=== PATIENT | male | born 1995 | race Asian ===

== ENCOUNTER 2018-02-25 01:18 | Emergency (ER) | payer SELFPAY ==
[2018-02-25] MEDS ORDERED: Ondansetron INJ* 2 MG/ML VIAL IV ONE (01:33)
[2018-02-25] MEDS ORDERED: NS 0.9% 1000 ML* 1,000 ML BOLUS SCH (01:45)
[2018-02-25 01:59] LABS: ABS Basophils 0 10^3/ul (0-0.2); ABS Eosinophils 0.1 10^3/ul (0-0.6); ABS Lymphocytes 2.5 10^3/ul (1.0-4.8); ABS Monocytes 0.3 10^3/ul (0-0.8); ABS Neutrophils 6.2 10^3/ul (1.5-7.7); ABS Nucleated RBC 0 10^3/ul; Hematocrit 43 % (42-52); Hemoglobin 14.4 g/dl (14.0-18.0); Lymphocyte % 27.5 % (25-47); Mean Corpuscular HGB Conc 34 g/dl (31-36); Mean Corpuscular Hemoglobin 29 pg (27-31); Mean Corpuscular Volume 84 fL (80-94); Mean Platelet Volume 9.1 um3 (7.4-10.4); Nucleated Red Blood Cells % 0.1; Platelet Count 167 10^3/ul (150-450); Red Blood Count 5.04 10^6/ul (4.0-5.4); Red Cell Distribution Width 14 % (10.5-15); White Blood Count 9.1 10^3/ul (3.5-10.8)
[2018-02-25 02:10] LABS: EGFR Non-African American 96.4 (>60)
[2018-02-25 07:12] LABS: Urine Appearance Cloudy; Urine Blood Negative (Negative); Urine Color Yellow; Urine Ketones 1+ (Negative); Urine Protein Negative (Negative); Urine Specific Gravity 1.019 (1.010-1.030); Urine Urobilinogen Negative (Negative)
[2018-02-25 07:13] VITALS: BP 111/55
--- NOTE | 2018-02-25 08:19 | ED ---
Nakul Brooke Tiffany, scribed for Maru Marks MD on 02/25/18 at 0201 . Substance Abuse/Use - HPI Summary HPI Summary: The patient is a 22 year old male BIBA with EtOH intoxication since 01:00 today. Symptoms aggravated by nothing. Symptoms alleviated by nothing. Patient is hiccuping upon evaluation. LEVEL 5 CAVEAT: HPI is limited because patient is unresponsive, eyes are closed , opens eyes to voice. - History Of Current Complaint Chief Complaint: EDSubstanceAbuse Stated Complaint: ETOH Time Seen by Provider: 02/25/18 01:21 Hx Obtained From: EMS Hx From Patient Unobtainable Due To: Other - Patient is unresponsive due to ETOH intoxication Onset/Duration of Drug/ETOH Abuse: Hours Timing Of Abuse: Binge Use Severity Currently: Moderate Character: Lethargic Aggravating Factor(s): Nothing Alleviating Factor(s): Nothing Associated Signs And Symptoms: Other: - hiccups Related Hx: Drug/Alcohol Last Used @ - 0100 - Allergies/Home Medications Allergies/Adverse Reactions: Allergies Allergy/AdvReac Type Severity Reaction Status Date / Time No Known Allergies Allergy Verified 02/25/18 01:33 Home Medications: Home Medications Unobtainable [Unobtainable] 02/25/18 [History Confirmed 02/25/18] PMH/Surg Hx/FS Hx/Imm Hx Previously Healthy: Yes Endocrine/Hematology History: Denies: Hx Diabetes Respiratory History: Denies: Hx Asthma - Surgical History Surgery Procedure, Year, and Place: NONE Infectious Disease History: No Infectious Disease History: Denies: Traveled Outside the [place] in Last 30 Days - Family History Known Family History: Positive: Other - No FHx-both parents and both sets of grandparents are alive and well. - Social History Occupation: Student Lives: Dormitory/Roommates Alcohol Use: Weekly Hx Substance Use: No Substance Use Type: Reports: None Hx Tobacco Use: No Smoking Status (MU): Never Smoked Tobacco Review of Systems - ROS Summary Review of Systems Summary: LEVEL 5 CAVEAT: ROS is limited because pt is intoxicated. Positive: Other - ETOH intoxication Cardiovascular: Negative Respiratory: Negative Positive: Other - hiccups Positive: Other - drowsy but rousable All Other Systems Reviewed And Are Negative: No Physical Exam - Summary Physical Exam Summary: Appearance: well-appearing, no pain distress, Well-nourished. Patient is hiccuping, opens eyes to voice, nods head to answer questions, has FROM of all extremities Skin: Warm, color reflects adequate perfusion Head: Normal Head/Face inspection, no signs of trauma Eyes: Conjunctiva clear, PERRL EOMI ENT: Normal inspection Neck: Supple, no nodes, no JVD. Respiratory: Lungs clear, Normal breath sounds, no respiratory distress Cardio: RRR, No murmur, pulses normal, brisk capillary refill Abdomen: soft, nontender, no masses Bowel sounds: present Musculoskeletal: Strength Intact/ ROM intact. No calf tenderness. No edema. Psychological: Normal Neuro: Drowsy but rousable, facial symmetry, muscle tone normal, moves all extremities, no focal deficit Triage Information Reviewed: Yes Vital Signs On Initial Exam: Initial Vitals Resp 18 02/25/18 01:26 Vital Signs Reviewed: Yes Diagnostics - Vital Signs Vital Signs Temp Pulse Resp BP Pulse Ox 02/25/18 01:43 72 15 100/60 98 02/25/18 01:29 97.6 F 70 20 90/72 100 02/25/18 01:28 17 90/72 02/25/18 01:26 18 - Laboratory Lab Results: Lab Results 02/25/18 02/25/18 02/25/18 Range/Units 01:38 01:38 06:45 WBC 9.1 (3.5-10.8) 10^3/ul RBC 5.04 (4.0-5.4) 10^6/ul Hgb 14.4 (14.0-18.0) g/dl Hct 43 (42-52) % MCV 84 (80-94) fL MCH 29 (27-31) pg MCHC 34 (31-36) g/dl RDW 14 (10.5-15) % Plt Count 167 (150-450) 10^3/ul MPV 9.1 (7.4-10.4) um3 Neut % (Auto) 67.9 (38-83) % Lymph % (Auto) 27.5 (25-47) % [place] % (Auto) 3.1 (0-7) % Eos % (Auto) 1.0 (0-6) % Baso % (Auto) 0.5 (0-2) % Absolute Neuts (auto) 6.2 (1.5-7.7) 10^3/ul Absolute Lymphs (auto) 2.5 (1.0-4.8) 10^3/ul Absolute Monos (auto) 0.3 (0-0.8) 10^3/ul Absolute Eos (auto) 0.1 (0-0.6) 10^3/ul Absolute Basos (auto) 0 (0-0.2) 10^3/ul Absolute Nucleated RBC 0 10^3/ul Nucleated RBC % 0.1 Sodium 138 L (139-145) mmol/L Potassium 3.6 (3.5-5.0) mmol/L Chloride 104 (101-111) mmol/L Carbon Dioxide 23 (22-32) mmol/L Anion Gap 11 (2-11) mmol/L BUN 18 (6-24) mg/dL Creatinine 0.99 (0.67-1.17) mg/dL Est GFR ( Amer) 123.9 (>60) Est GFR (Non-Af Amer) 96.4 (>60) BUN/Creatinine Ratio 18.2 (8-20) Glucose 128 H (70-100) mg/dL Calcium 8.8 (8.6-10.3) mg/dL Magnesium 2.4 (1.9-2.7) mg/dL Total Bilirubin 0.60 (0.2-1.0) mg/dL AST 50 H (13-39) U/L ALT 44 (7-52) U/L Alkaline Phosphatase 47 (34-104) U/L Total Protein 6.7 (6.4-8.9) g/dL Albumin 4.3 (3.2-5.2) g/dL Globulin 2.4 (2-4) g/dL Albumin/Globulin Ratio 1.8 (1-3) Urine Color Yellow Urine Appearance Cloudy Urine pH 5.0 (5-9) Ur Specific [place] 1.019 (1.010-1.030) Urine Protein Negative (Negative) Urine Ketones 1+ A (Negative) Urine Blood Negative (Negative) Urine Nitrate Negative (Negative) Urine Bilirubin Negative (Negative) Urine Urobilinogen Negative (Negative) Ur Leukocyte Esterase Negative (Negative) Urine Glucose Negative (Negative) Urine Ascorbic Acid * A (Negative) Serum Alcohol 249 H (<10) mg/dL Result Diagrams: 02/25/18 01:38 02/25/18 01:38 Lab Statement: Any lab studies that have been ordered have been reviewed, and results considered in the medical decision making process. Re-Evaluation - Re-Evaluation First Eval Re-Evaluation Time: 06:42 Change: Improved Comment: Patient is up and walking. He states he was celebrating with his friends last night. No PMHx, allergies, FHx, surgeries. Agreeable to go home. Course/Dx - Course Course Of Treatment: Patient hydrated IV fluids and given IV zofran 4mg. No vomiting in the ED. Medically sober to be discharged home at 0642. Ambulated without assistance. Advised of elevated AST due to alcohol, and to decrease alcohol intake. A friend will bring him back to [place]. - Diagnoses Differential Diagnosis/HQI/PQRI: Positive: Alcohol Abuse, Drug Abuse, Metabolic Disorder Provider Diagnoses: Alcohol intoxication, Elevated AST (SGOT) Discharge - Sign-Out/Discharge Documenting (check all that apply): Discharge/Admit/Transfer - home to [place] - Discharge Plan Condition: Stable Disposition: HOME Patient Education Materials: Alcohol Intoxication (ED) Referrals: [facility] - [place] CHIN [Medical Doctor] - 2 Days Additional Instructions: Return to the ER if you have new or worsening symptoms. - Billing Disposition and Condition Condition: STABLE Disposition: HOME The documentation as recorded by the Nakul floyd Tiffany accurately reflects the service I personally performed and the decisions made by me, Maru Marks MD.
== END 2018-02-25 07:57 | disposition home or self-care (01) ==
LOC: ED 01:18
DX: F10.129 Alcohol abuse with intoxication, unspecified (principal); Y90.8 Blood alcohol level of 240 mg/100 ml or more; R06.6 Hiccough; R74.0 Nonspecific elevation of levels of transaminase and lactic acid dehydrogenase [LDH]
CPT/HCPCS: 36415; 80053; 80320; 81003; 83735; 85025; 96374; 99283; G0480; J2405